=== PATIENT | male | born 1940 | race Caucasian/White ===

== ENCOUNTER 2019-05-22 04:57 | Inpatient (IN) ==
[2019-05-22] MEDS ORDERED: ASPIRIN 325 MG TABLET PO STA (05:17)
[2019-05-22] MEDS ORDERED: NITROGLYCERIN 2% OINT 1 INCH/GM PACK TOP STA (05:17)
[2019-05-22] MEDS ORDERED: ONDANSETRON 4 MG/2 ML VIAL IV STA (05:17)
[2019-05-22] MEDS ORDERED: methylPREDNISolone SOD SUC 125 MG/2 ML VIAL IV STA (05:27)
[2019-05-22] MEDS ORDERED: ALBUTEROL/IPRATROPIUM 3 ML NEB RESP TX STA (05:27)
[2019-05-22 05:49] LABS: Basophils % 0.3 % (0.0-0.8); Eosinophils # 0.1 10*3/uL (0.0-0.87); Eosinophils % 0.9 % (0.00-10.9); Hematocrit 28.7 VOL% (42.0-52.0); Hemoglobin 9.2 GM/DL (14.0-18.0); Immature Granulocytes % 1.4 %; Immature Granulocytes Absolute 0.11 #; Lymphocytes # 0.5 10*3/uL (1.4-4.0); Lymphocytes % 6.3 % (21.2-54.2); Mean Corpuscular HGB Conc 32.1 GM/DL (32-36); Mean Corpuscular Volume 87.5 FL (87-102); Mean Platelet Volume 10.7 FL (9.6-12.0); Monocytes % 13.4 % (1.7-12.7); Neutrophils % 77.7 % (38.7-73.9); Platelet Count 138 T/CUMM (130-400); Red Blood Count 3.28 MC/CUMM (3.8-5.5); Red Cell Distribution Width 16.6 % (9.3-17.3); White Blood Count 7.9 T/CUMM (4-12)
[2019-05-22 05:59] LABS: INR 1.1; PT Patient Result 12.1 SECS (9.6-12.2)
[2019-05-22 06:12] LABS: Albumin 2.2 G/DL (3.4-5.0); Bilirubin,Total 0.6 MG/DL (0.2-1.0); Calcium 7.8 MG/DL (8.5-10.1); Osmolality,Calculated 284.4 MOS/KG (273-304); Total Protein 4.7 G/DL (6.4-8.3)
[2019-05-22 06:26] LABS: ABG Base Excess -1.9 MMOL/L (-2.5-2.5); ABG HCO3 22.7 MMOL/L (20-26); ABG Oxygen Saturation 89.9 % (95-100); ABG PCO2 30.8 MM HG (35-48); ABG PO2 54.5 MM HG (80-95); ABG TCO2 19.8 MMOL/L (23-27); Allen Test Positive
[2019-05-22] MEDS ORDERED: APIXABAN 5 MG TABLET PO SCH ×2 (09:45→21:00)
[2019-05-22] MEDS: DRONEDARONE 400 MG TABLET PO SCH (17:45)
[2019-05-22] MEDS: FLUTICASONE/SALMETEROL 250-50 DISKUS 14 DOSE INH SCH (20:48)
[2019-05-22] MEDS: APIXABAN 5 MG TABLET PO SCH (20:48)
[2019-05-23 05:30] LABS: Basophils % 0.2 % (0.0-0.8); Hematocrit 28.8 VOL% (42.0-52.0); Hemoglobin 9.1 GM/DL (14.0-18.0); Immature Granulocytes % 1.6 %; Immature Granulocytes Absolute 0.16 #; Lymphocytes # 0.6 10*3/uL (1.4-4.0); Lymphocytes % 5.6 % (21.2-54.2); Mean Corpuscular HGB Conc 31.6 GM/DL (32-36); Mean Corpuscular Volume 87.8 FL (87-102); Mean Platelet Volume 11.3 FL (9.6-12.0); Monocytes % 8.8 % (1.7-12.7); Neutrophils % 83.8 % (38.7-73.9); Platelet Count 170 T/CUMM (130-400); Red Blood Count 3.28 MC/CUMM (3.8-5.5); Red Cell Distribution Width 16.6 % (9.3-17.3); White Blood Count 10.2 T/CUMM (4-12)
[2019-05-23 05:53] LABS: Albumin 2.3 G/DL (3.4-5.0); Bilirubin,Total 0.8 MG/DL (0.2-1.0); Calcium 8.2 MG/DL (8.5-10.1); Osmolality,Calculated 287.3 MOS/KG (273-304); Total Protein 5.3 G/DL (6.4-8.3)
[2019-05-23] MEDS ORDERED: MONTELUKAST 10 MG TABLET PO SCH (09:00)
[2019-05-23] MEDS ORDERED: LIDOCAINE 5% PATCH TRANSDERM SCH (09:00)
[2019-05-23] MEDS ORDERED: amLODIPine 10 MG TABLET PO SCH (09:00)
[2019-05-23] MEDS ORDERED: FINASTERIDE 5 MG TABLET PO SCH (09:00)
[2019-05-23] MEDS ORDERED: CETIRIZINE 10 MG TABLET PO SCH (09:00)
[2019-05-23] MEDS ORDERED: TAMSULOSIN 0.4 MG CAPSULE PO SCH (09:00)
[2019-05-23] MEDS ORDERED: LOSARTAN 50 MG TABLET PO SCH (09:00)
[2019-05-23] MEDS ORDERED: PANTOPRAZOLE 40 MG TABLET PO SCH (09:00)
[2019-05-23] MEDS ORDERED: ACETAMINOPHEN 325 MG TABLET PO PRN (09:03)
[2019-05-23] MEDS: DRONEDARONE 400 MG TABLET PO SCH (09:30)
[2019-05-23] MEDS ORDERED: CLINDAMYCIN INJ 600 MG in PREMIX 1 EACH IV SCH (09:30)
[2019-05-23] MEDS: APIXABAN 5 MG TABLET PO SCH (09:30)
[2019-05-23] MEDS: FLUTICASONE/SALMETEROL 250-50 DISKUS 14 DOSE INH SCH (09:38)
[2019-05-23 12:06] LABS: Apearance,Urine Slightly Hazy (Clear); Bilirubin,Urine Negative (Negative); Blood, Urine Negative (Negative); Glucose,Urine (UA) Negative (Negative); Hyaline Casts,Urine 1 /LPF (0-3); Ketones,Urine Negative (Negative); Mucus,Urine Occasional /LPF (Occasional); Nitrite,Urine Negative (Negative); Protein,Urine 30 MG/DL; Squamous Epithelial Cell,Urine Occasional /HPF (0-10); Urine Color Yellow (Yellow); Urine Specific Gravity 1.028 (1.001-1.035); Urine Urobilinogen < 2.0 EU/DL (0.2-1.0); WBC,Urine 1 /HPF (0-6)
[2019-05-23 12:36] VITALS: BP 132/66
== END 2019-05-23 13:04 | disposition home health service (06) | DRG 199 ==
LOC: EDUNIT# → EDBD → N.ED 04:57 → N.EDINP 09:18 → N.TELES 10:31
PROVIDERS: ADMIT Internal Medicine; ATTEND Internal Medicine

== ENCOUNTER 2019-06-07 21:57 | Inpatient (IN) ==
[2019-06-07] MEDS ORDERED: ONDANSETRON 4 MG/2 ML VIAL IV ONE (22:30)
[2019-06-07] MEDS ORDERED: ALBUTEROL/IPRATROPIUM 3 ML NEB RESP TX STA (22:30)
[2019-06-07] MEDS ORDERED: SODIUM CHLORIDE 0.9% 2,000 ML IV STA (22:30)
[2019-06-07] MEDS ORDERED: ACETAMINOPHEN 325 MG TABLET PO ONE (22:30)
[2019-06-07 22:44] LABS: Eosinophils % 3.9 % (0.00-10.9); Hematocrit 25.1 VOL% (42.0-52.0); Immature Granulocytes % 3.9 %; Immature Granulocytes Absolute 0.03 #; Lymphocytes # 0.2 10*3/uL (1.4-4.0); Lymphocytes % 20.8 % (21.2-54.2); Mean Corpuscular HGB Conc 31.9 GM/DL (32-36); Mean Corpuscular Volume 84.5 FL (87-102); Monocytes % 24.7 % (1.7-12.7); Neutrophils % 46.7 % (38.7-73.9); Red Blood Count 2.97 MC/CUMM (3.8-5.5); Red Cell Distribution Width 15.2 % (9.3-17.3)
[2019-06-07 22:47] LABS: INR 1.1; PT Patient Result 11.6 SECS (9.6-12.2)
[2019-06-07 22:48] LABS: Platelet Count 25 T/CUMM (130-400); White Blood Count 0.8 T/CUMM (4-12)
[2019-06-07 22:53] LABS: Albumin 2.5 G/DL (3.4-5.0); Bilirubin,Total 0.8 MG/DL (0.2-1.0); Total Protein 5.9 G/DL (6.4-8.3)
[2019-06-07 23:04] LABS: Troponin I 0.063 NG/ML (0.00-0.045)
[2019-06-07 23:12] LABS: Band Neutrophils 2 % (0-10); Eosinophils 6 % (0-10); Lymphocytes 18 % (20-55); Metamyelocytes 2 %; Myelocytes 2 %; Segmented Neutrophils 50 % (50-85)
[2019-06-07 23:13] LABS: Giant Platelets Few; Hypochromasia Slight; Ovalocytes 2+; Platelet Estimate Decreased; Reactive Lymphocytes Few
[2019-06-07 23:14] LABS: Schistocytes Few; Tear Drop Cells Few; Total Cells Counted 100
[2019-06-07] MEDS ORDERED: VANCOMYCIN INJ 1,000 MG in SODIUM CHLORIDE 0.9% 250 ML IV STA (23:23)
[2019-06-07] MEDS ORDERED: CEFEPIME 1,000 MG in SODIUM CHLORIDE 0.9% 100 ML IV STA (23:24)
[2019-06-07] MEDS ORDERED: IBUPROFEN 800 MG TABLET PO STA (23:43)
[2019-06-07] MEDS ORDERED: DILTIAZEM 50 MG/10 ML VIAL IV STA (23:43)
[2019-06-07] MEDS ORDERED: DILTIAZEM 25 MG/5 ML VIAL IV ONE (23:47)
[2019-06-07] MEDS ORDERED: metroNIDAZOLE INJ 500 MG in PREMIX 1 EACH IV STA (23:55)
[2019-06-08] MEDS ORDERED: ONDANSETRON 4 MG/2 ML VIAL IV PRN (00:18)
[2019-06-08] MEDS ORDERED: MORPHINE 4 MG/1 ML VIAL IV PRN (00:18)
[2019-06-08] MEDS ORDERED: guaiFENesin/DM ER 600-30 MG TABLET PO PRN (00:18)
[2019-06-08] MEDS ORDERED: ACETAMINOPHEN 325 MG TABLET PO PRN (00:18)
[2019-06-08] MEDS ORDERED: ZALEPLON 5 MG CAPSULE PO PRN (00:18)
[2019-06-08] MEDS ORDERED: DOCUSATE SODIUM 100 MG CAPSULE PO PRN (00:18)
[2019-06-08] MEDS ORDERED: SODIUM CHLORIDE 0.9% 1,000 ML IV STA (00:34)
[2019-06-08] MEDS: SODIUM CHLORIDE 0.9% 1,000 ML IV SCH ×2 (01:54→16:10)
[2019-06-08] MEDS ORDERED: DILTIAZEM 50 MG/10 ML VIAL IV ONE (03:12)
[2019-06-08] MEDS ORDERED: PHENYLEPHRINE DRIP 40 MG/250 ML PREMIX IV PRN (03:51)
[2019-06-08] MEDS: dilTIAZem Drip 125 MG/125 ML PREMIX IV SCH (04:15)
[2019-06-08 05:20] LABS: Eosinophils % 2.7 % (0.00-10.9); Hematocrit 20.4 VOL% (42.0-52.0); Immature Granulocytes % 1.4 %; Immature Granulocytes Absolute 0.01 #; Lymphocytes # 0.2 10*3/uL (1.4-4.0); Lymphocytes % 23.3 % (21.2-54.2); Mean Corpuscular HGB Conc 31.4 GM/DL (32-36); Monocytes % 19.2 % (1.7-12.7); Neutrophils % 53.4 % (38.7-73.9); Red Blood Count 2.43 MC/CUMM (3.8-5.5); Red Cell Distribution Width 15.3 % (9.3-17.3)
[2019-06-08 05:26] LABS: Hemoglobin 6.4 GM/DL (14.0-18.0); Platelet Count 21 T/CUMM (130-400); White Blood Count 0.7 T/CUMM (4-12)
[2019-06-08 05:34] LABS: Calcium 7.1 MG/DL (8.5-10.1); Osmolality,Calculated 285.1 MOS/KG (273-304); Total Protein 4.7 G/DL (6.4-8.3)
[2019-06-08 05:49] LABS: Band Neutrophils 3 % (0-10); Eosinophils 7 % (0-10); Hypochromasia 1+; Lymphocytes 30 % (20-55); Ovalocytes Slight; Platelet Estimate Decreased; Segmented Neutrophils 45 % (50-85); Total Cells Counted 100
[2019-06-08] MEDS: ALBUTEROL/IPRATROPIUM 3 ML NEB RESP TX PRN ×2 (06:30→20:43)
[2019-06-08] MEDS ORDERED: SODIUM CHLORIDE 0.9% 1,000 ML IV PRN (08:35)
[2019-06-08] MEDS ORDERED: APIXABAN 2.5 MG TABLET PO SCH (09:00)
[2019-06-08] MEDS ORDERED: LORATADINE 10 MG TABLET PO PRN (09:09)
[2019-06-08] MEDS: PANTOPRAZOLE 40 MG TABLET PO SCH (09:14)
[2019-06-08] MEDS: FLUTICASONE/SALMETEROL 250-50 DISKUS 14 DOSE INH SCH ×2 (09:14→20:40)
[2019-06-08] MEDS: DILTIAZEM 30 MG TABLET PO SCH ×3 (09:14→20:40)
[2019-06-08] MEDS: MONTELUKAST 10 MG TABLET PO SCH (09:14)
[2019-06-08] MEDS: FOLIC ACID 1 MG TABLET PO SCH (09:14)
[2019-06-08] MEDS: CEFEPIME 1,000 MG in SODIUM CHLORIDE 0.9% 100 ML IV SCH ×2 (09:15→16:09)
[2019-06-08] MEDS: FILGRASTIM-SNDZ 300 MCG/0.5 ML SYRINGE SUBCUT SCH (10:07)
[2019-06-08] MEDS: metroNIDAZOLE INJ 500 MG in PREMIX 1 EACH IV SCH ×2 (10:56→18:58)
[2019-06-08] MEDS: DRONEDARONE 400 MG TABLET PO SCH (16:09)
[2019-06-08] MEDS ORDERED: FUROSEMIDE 20 MG/2 ML VIAL IV ONE (21:15)
[2019-06-08] MEDS ORDERED: FUROSEMIDE 40 MG/4 ML VIAL ONE (21:17)
[2019-06-09] MEDS: VANCOMYCIN INJ 1,250 MG in SODIUM CHLORIDE 0.9% 250 ML IV SCH ×2 (00:11→22:59)
[2019-06-09] MEDS: CEFEPIME 1,000 MG in SODIUM CHLORIDE 0.9% 100 ML IV SCH ×3 (01:40→16:44)
[2019-06-09] MEDS: ALBUTEROL/IPRATROPIUM 3 ML NEB RESP TX SCH ×7 (03:36→23:40)
[2019-06-09] MEDS: metroNIDAZOLE INJ 500 MG in PREMIX 1 EACH IV SCH ×3 (03:53→18:11)
[2019-06-09 06:00] LABS: Eosinophils # 0.1 10*3/uL (0.0-0.87); Hematocrit 22.6 VOL% (42.0-52.0); Hemoglobin 7.6 GM/DL (14.0-18.0); Immature Granulocytes Absolute 0.04 #; Lymphocytes # 0.3 10*3/uL (1.4-4.0); Lymphocytes % 14.9 % (21.2-54.2); Mean Corpuscular HGB Conc 33.6 GM/DL (32-36); Mean Corpuscular Volume 83.7 FL (87-102); Mean Platelet Volume 12.5 FL (9.6-12.0); Monocytes % 14.9 % (1.7-12.7); NRBC # 0.02 10*3/uL; Neutrophils % 61.2 % (38.7-73.9); Red Cell Distribution Width 15.1 % (9.3-17.3)
[2019-06-09 06:02] LABS: Platelet Count 47 T/CUMM (130-400)
[2019-06-09] MEDS: SODIUM CHLORIDE 0.9% 1,000 ML IV SCH ×3 (06:06→22:27)
[2019-06-09] MEDS: dilTIAZem Drip 125 MG/125 ML PREMIX IV SCH (06:06)
[2019-06-09 06:22] LABS: Calcium 7.1 MG/DL (8.5-10.1); Osmolality,Calculated 281.3 MOS/KG (273-304)
[2019-06-09 06:46] LABS: Band Neutrophils 1 % (0-10); Eosinophils 6 % (0-10); Lymphocytes 12 % (20-55); Nucleated Red Blood Cells 1 (0-5); Platelet Estimate Decreased; Polychromasia Few; Segmented Neutrophils 68 % (50-85); Total Cells Counted 100
[2019-06-09] MEDS ORDERED: MAGNESIUM SULF RIDER 1 GM in PREMIX 1 EACH IV ONE (07:47)
[2019-06-09] MEDS: TAMSULOSIN 0.4 MG CAPSULE PO SCH (08:33)
[2019-06-09] MEDS: FINASTERIDE 5 MG TABLET PO SCH (08:33)
[2019-06-09] MEDS: DILTIAZEM 30 MG TABLET PO SCH ×3 (08:33→20:39)
[2019-06-09] MEDS: FOLIC ACID 1 MG TABLET PO SCH (08:34)
[2019-06-09] MEDS: DRONEDARONE 400 MG TABLET PO SCH ×2 (08:34→16:44)
[2019-06-09] MEDS: PANTOPRAZOLE 40 MG TABLET PO SCH (08:34)
[2019-06-09] MEDS: MONTELUKAST 10 MG TABLET PO SCH (08:34)
[2019-06-09] MEDS: FILGRASTIM-SNDZ 300 MCG/0.5 ML SYRINGE SUBCUT SCH (08:35)
[2019-06-09] MEDS: FLUTICASONE/SALMETEROL 250-50 DISKUS 14 DOSE INH SCH ×2 (08:42→20:39)
[2019-06-09] MEDS ORDERED: SODIUM CHLORIDE 0.9% 1,000 ML IV PRN (09:02)
[2019-06-09] MEDS: APIXABAN 2.5 MG TABLET PO SCH (10:04)
[2019-06-09] MEDS ORDERED: BENZONATATE 100 MG CAPSULE PO PRN (14:45)
[2019-06-09 15:54] LABS: Hemoglobin 9.2 GM/DL (14.0-18.0)
[2019-06-09] MEDS: LIDOCAINE 5% PATCH TRANSDERM SCH (16:45)
[2019-06-10] MEDS: CEFEPIME 1,000 MG in SODIUM CHLORIDE 0.9% 100 ML IV SCH ×3 (01:20→18:26)
[2019-06-10] MEDS: metroNIDAZOLE INJ 500 MG in PREMIX 1 EACH IV SCH ×3 (02:48→20:26)
[2019-06-10] MEDS: ALBUTEROL/IPRATROPIUM 3 ML NEB RESP TX SCH ×5 (03:38→21:10)
[2019-06-10 05:43] LABS: Basophils % 0.7 % (0.0-0.8); Eosinophils # 0.4 10*3/uL (0.0-0.87); Eosinophils % 9.2 % (0.00-10.9); Hematocrit 28.1 VOL% (42.0-52.0); Hemoglobin 9.5 GM/DL (14.0-18.0); Immature Granulocytes % 8.1 %; Immature Granulocytes Absolute 0.37 #; Lymphocytes # 0.6 10*3/uL (1.4-4.0); Lymphocytes % 12.4 % (21.2-54.2); Mean Corpuscular HGB Conc 33.8 GM/DL (32-36); Mean Corpuscular Volume 82.4 FL (87-102); Mean Platelet Volume 12.8 FL (9.6-12.0); NRBC # 0.12 10*3/uL; Neutrophils % 54.6 % (38.7-73.9); Red Blood Count 3.41 MC/CUMM (3.8-5.5); Red Cell Distribution Width 15.4 % (9.3-17.3); White Blood Count 4.6 T/CUMM (4-12)
[2019-06-10 05:44] LABS: Platelet Count 94 T/CUMM (130-400)
[2019-06-10 06:04] LABS: Calcium 7.6 MG/DL (8.5-10.1); Osmolality,Calculated 273.7 MOS/KG (273-304)
[2019-06-10 06:12] LABS: Band Neutrophils 1 % (0-10); Burr Cells Slight; Eosinophils 10 % (0-10); Hypochromasia Slight; Lymphocytes 13 % (20-55); Nucleated Red Blood Cells 2 (0-5); Ovalocytes Slight; Platelet Estimate Decreased; Segmented Neutrophils 67 % (50-85); Total Cells Counted 100
[2019-06-10] MEDS: FLUTICASONE/SALMETEROL 250-50 DISKUS 14 DOSE INH SCH ×2 (10:20→20:28)
[2019-06-10] MEDS: LIDOCAINE 5% PATCH TRANSDERM SCH (10:22)
[2019-06-10] MEDS: FILGRASTIM-SNDZ 300 MCG/0.5 ML SYRINGE SUBCUT SCH (10:25)
[2019-06-10] MEDS: DILTIAZEM 30 MG TABLET PO SCH ×3 (10:27→20:28)
[2019-06-10] MEDS: APIXABAN 2.5 MG TABLET PO SCH (10:27)
[2019-06-10] MEDS: TAMSULOSIN 0.4 MG CAPSULE PO SCH (10:27)
[2019-06-10] MEDS: DRONEDARONE 400 MG TABLET PO SCH ×2 (10:27→17:23)
[2019-06-10] MEDS: FOLIC ACID 1 MG TABLET PO SCH (10:27)
[2019-06-10] MEDS: PANTOPRAZOLE 40 MG TABLET PO SCH (10:27)
[2019-06-10] MEDS: MONTELUKAST 10 MG TABLET PO SCH (10:27)
[2019-06-10] MEDS: FINASTERIDE 5 MG TABLET PO SCH (10:27)
[2019-06-10] MEDS: APIXABAN 5 MG TABLET PO SCH (20:27)
[2019-06-11] MEDS: ALBUTEROL/IPRATROPIUM 3 ML NEB RESP TX SCH ×4 (00:18→11:19)
[2019-06-11] MEDS: CEFEPIME 1,000 MG in SODIUM CHLORIDE 0.9% 100 ML IV SCH (03:06)
[2019-06-11] MEDS: metroNIDAZOLE INJ 500 MG in PREMIX 1 EACH IV SCH (03:39)
[2019-06-11 05:22] LABS: Basophils # 0.1 10*3/uL (0.0-0.2); Basophils % 0.8 % (0.0-0.8); Eosinophils # 0.5 10*3/uL (0.0-0.87); Eosinophils % 5.3 % (0.00-10.9); Hematocrit 27.3 VOL% (42.0-52.0); Hemoglobin 9.2 GM/DL (14.0-18.0); Immature Granulocytes % 12.9 %; Lymphocytes # 1.1 10*3/uL (1.4-4.0); Lymphocytes % 11.9 % (21.2-54.2); Mean Corpuscular HGB Conc 33.7 GM/DL (32-36); Mean Corpuscular Volume 83.7 FL (87-102); Monocytes % 11.5 % (1.7-12.7); NRBC # 0.11 10*3/uL; Neutrophils % 57.6 % (38.7-73.9); Platelet Count 142 T/CUMM (130-400); Red Blood Count 3.26 MC/CUMM (3.8-5.5); Red Cell Distribution Width 15.7 % (9.3-17.3); White Blood Count 9.3 T/CUMM (4-12)
[2019-06-11 05:43] LABS: Calcium 7.6 MG/DL (8.5-10.1)
[2019-06-11 06:07] LABS: Atypical Lymphocytes Few; Band Neutrophils 3 % (0-10); Eosinophils 8 % (0-10); Lymphocytes 20 % (20-55); Metamyelocytes 1 %; Nucleated Red Blood Cells 1 (0-5); Reactive Lymphocytes Few; Segmented Neutrophils 54 % (50-85); Total Cells Counted 100
[2019-06-11 06:09] LABS: Acanthocytes 3+; Burr Cells 2+; Giant Platelets Few; Platelet Estimate Normal; Polychromasia 1+
[2019-06-11] MEDS ORDERED: MAGNESIUM SULF RIDER 4 GM in PREMIX 1 EACH IV PRN (07:41)
[2019-06-11] MEDS ORDERED: MAGNESIUM SULF RIDER 2 GM in PREMIX 1 EACH IV PRN (07:41)
[2019-06-11] MEDS: DRONEDARONE 400 MG TABLET PO SCH (08:25)
[2019-06-11] MEDS: MONTELUKAST 10 MG TABLET PO SCH (08:25)
[2019-06-11] MEDS: DILTIAZEM 30 MG TABLET PO SCH (08:25)
[2019-06-11] MEDS: FILGRASTIM-SNDZ 300 MCG/0.5 ML SYRINGE SUBCUT SCH (08:25)
[2019-06-11] MEDS: FOLIC ACID 1 MG TABLET PO SCH (08:25)
[2019-06-11] MEDS: FINASTERIDE 5 MG TABLET PO SCH (08:25)
[2019-06-11] MEDS: APIXABAN 5 MG TABLET PO SCH (08:26)
[2019-06-11] MEDS: PANTOPRAZOLE 40 MG TABLET PO SCH (08:26)
[2019-06-11] MEDS: TAMSULOSIN 0.4 MG CAPSULE PO SCH (08:26)
[2019-06-11] MEDS: FLUTICASONE/SALMETEROL 250-50 DISKUS 14 DOSE INH SCH (08:27)
[2019-06-11] MEDS: LIDOCAINE 5% PATCH TRANSDERM SCH (08:27)
[2019-06-11] MEDS ORDERED: APIXABAN 2.5 MG TABLET PO SCH (11:00)
[2019-06-11 12:25] VITALS: BP 135/67
== END 2019-06-11 14:30 | disposition home or self-care (01) | DRG 871 ==
LOC: EDBD → EDUNIT# → N.ED 21:57 → SUATTDRO 23:58 → N.EDINP 23:59 → SUATTDRO 23:59 → N.ICU 06-08 00:31 → N.4E 06-09 14:44
PROVIDERS: ADMIT Internal Medicine Geriatric Medicine; ATTEND Hospitalist

== ENCOUNTER 2019-08-02 09:51 | Inpatient (IN) ==
[2019-08-02] MEDS ORDERED: ONDANSETRON 4 MG/2 ML VIAL IV STA (10:06)
[2019-08-02] MEDS ORDERED: PHENAZOPYRIDINE 95 MG TABLET PO STA (10:09)
[2019-08-02] MEDS ORDERED: LEVOFLOXACIN INJ 750 MG in PREMIX 1 EACH IV STA (10:11)
[2019-08-02 10:38] LABS: Basophils % 0.1 % (0.0-0.8); Eosinophils # 0.1 10*3/uL (0.0-0.87); Eosinophils % 0.6 % (0.00-10.9); Hematocrit 38.9 VOL% (42.0-52.0); Hemoglobin 13.1 GM/DL (14.0-18.0); Immature Granulocytes % 0.4 %; Immature Granulocytes Absolute 0.05 #; Lymphocytes # 0.7 10*3/uL (1.4-4.0); Lymphocytes % 5.1 % (21.2-54.2); Mean Corpuscular HGB Conc 33.7 GM/DL (32-36); Mean Corpuscular Volume 90.3 FL (87-102); Mean Platelet Volume 9.7 FL (9.6-12.0); Monocytes % 13.6 % (1.7-12.7); Neutrophils % 80.2 % (38.7-73.9); Platelet Count 299 T/CUMM (130-400); Red Blood Count 4.31 MC/CUMM (3.8-5.5); Red Cell Distribution Width 15.9 % (9.3-17.3); White Blood Count 12.9 T/CUMM (4-12)
[2019-08-02 10:49] LABS: Apearance,Urine CLEAR (Clear); Bacteria,Urine Occasional /HPF (Few); Bilirubin,Urine Negative (Negative); Blood, Urine Negative (Negative); Glucose,Urine (UA) Negative (Negative); Ketones,Urine 5 mg/dL (Negative); Nitrite,Urine Positive (Negative); Protein,Urine Negative; RBC,Urine 1 /HPF (0-4); Urine Color Amber (Yellow); Urine Specific Gravity 1.008 (1.001-1.035); WBC,Urine <1 /HPF (0-6)
[2019-08-02] MEDS ORDERED: METOPROLOL TARTRATE 5 MG/5 ML VIAL IV STA (10:53)
[2019-08-02] MEDS ORDERED: METOPROLOL TARTRATE 5 MG/5 ML VIAL IV ONE (10:54)
[2019-08-02 11:01] LABS: Alanine Aminotransferase 13 U/L (16-61); Albumin 3.5 G/DL (3.4-5.0); Alkaline Phosphatase 78 U/L (45-117); Aspartate Amino Transferase 17 U/L (0-37); Blood Urea Nitrogen 19 MG/DL (7-18); Calcium 9.5 MG/DL (8.5-10.1); Estimated Glom Filtration Rate 44 ML/MIN; Glucose 74 MG/DL (74-106); Osmolality,Calculated 260.8 MOS/KG (273-304); Total Protein 6.6 G/DL (6.4-8.3); Troponin I < 0.015 NG/ML (0.00-0.045)
[2019-08-02] MEDS ORDERED: SODIUM CHLORIDE 0.9% 500 ML IV STA (11:04)
[2019-08-02 11:06] LABS: Prostate Specific Antigen Diag 4.5 NG/ML (0-4)
[2019-08-02] MEDS: TAMSULOSIN 0.4 MG CAPSULE PO SCH (11:44)
[2019-08-02] MEDS ORDERED: ACETAMINOPHEN 325 MG TABLET PO PRN (11:48)
[2019-08-02] MEDS ORDERED: DOCUSATE SODIUM 100 MG CAPSULE PO PRN (11:48)
[2019-08-02] MEDS ORDERED: SIMETHICONE CHEW 125 MG TABLET PO PRN (11:48)
[2019-08-02] MEDS ORDERED: LACTULOSE 20 GM/30 ML UDCUP PO PRN (11:48)
[2019-08-02] MEDS ORDERED: hydrALAZINE 20 MG/1 ML VIAL IV PRN (11:48)
[2019-08-02] MEDS ORDERED: ONDANSETRON 4 MG/2 ML VIAL IV PRN (11:48)
[2019-08-02] MEDS ORDERED: ALBUTEROL 2.5 MG/3 ML NEB RESP TX PRN (12:08)
[2019-08-02] MEDS ORDERED: METOPROLOL TARTRATE 5 MG/5 ML VIAL IV PRN (12:31)
[2019-08-02] MEDS ORDERED: DRONEDARONE 400 MG TABLET PO ONE (14:13)
[2019-08-02] MEDS: LOSARTAN 50 MG TABLET PO SCH (14:24)
[2019-08-02] MEDS: SODIUM CHLORIDE 0.9% 1,000 ML IV SCH (14:24)
[2019-08-02] MEDS: amLODIPine 10 MG TABLET PO SCH (14:24)
[2019-08-02] MEDS: PANTOPRAZOLE 40 MG TABLET PO SCH (16:51)
[2019-08-02] MEDS: DRONEDARONE 400 MG TABLET PO SCH (16:52)
[2019-08-02] MEDS ORDERED: DRONEDARONE 400 MG TABLET PO SCH (17:00)
[2019-08-02] MEDS: APIXABAN 5 MG TABLET PO SCH (20:30)
[2019-08-03 05:52] LABS: Basophils % 0.2 % (0.0-0.8); Calcium 8.6 MG/DL (8.5-10.1); Eosinophils # 0.3 10*3/uL (0.0-0.87); Eosinophils % 4.1 % (0.00-10.9); Hematocrit 31.9 VOL% (42.0-52.0); Immature Granulocytes % 0.5 %; Immature Granulocytes Absolute 0.03 #; Lymphocytes # 0.7 10*3/uL (1.4-4.0); Lymphocytes % 10.7 % (21.2-54.2); Mean Corpuscular HGB Conc 32.3 GM/DL (32-36); Mean Corpuscular Volume 92.5 FL (87-102); Mean Platelet Volume 9.7 FL (9.6-12.0); Monocytes % 15.9 % (1.7-12.7); Neutrophils % 68.6 % (38.7-73.9); Osmolality,Calculated 274.7 MOS/KG (273-304); Red Blood Count 3.45 MC/CUMM (3.8-5.5); Red Cell Distribution Width 15.9 % (9.3-17.3)
[2019-08-03 06:05] LABS: Hemoglobin 10.3 GM/DL (14.0-18.0); Platelet Count 239 T/CUMM (130-400); White Blood Count 6.5 T/CUMM (4-12)
[2019-08-03 07:15] LABS: Band Neutrophils 1 % (0-10); Total Cells Counted 100
[2019-08-03 07:19] LABS: Eosinophils 3 % (0-10); Lymphocytes 11 % (20-55); Platelet Estimate Normal; Segmented Neutrophils 70 % (50-85)
[2019-08-03] MEDS: SODIUM CHLORIDE 0.9% 1,000 ML IV SCH (07:44)
[2019-08-03] MEDS: amLODIPine 10 MG TABLET PO SCH (08:52)
[2019-08-03] MEDS: LOSARTAN 50 MG TABLET PO SCH (08:52)
[2019-08-03] MEDS: PANTOPRAZOLE 40 MG TABLET PO SCH (08:53)
[2019-08-03] MEDS: DRONEDARONE 400 MG TABLET PO SCH ×2 (08:53→18:46)
[2019-08-03] MEDS: APIXABAN 5 MG TABLET PO SCH ×2 (08:53→20:24)
[2019-08-03] MEDS: TAMSULOSIN 0.4 MG CAPSULE PO SCH (08:53)
[2019-08-03] MEDS ORDERED: DUTASTERIDE 0.5 MG CAPSULE PO SCH (09:00)
[2019-08-03] MEDS ORDERED: MONTELUKAST 10 MG TABLET PO SCH (09:00)
[2019-08-03] MEDS ORDERED: FLUTICASONE 50 MCG NASAL SPRAY 16 GM BOTTLE BOTH NARES SCH (09:00)
[2019-08-04 05:08] LABS: Basophils % 0.2 % (0.0-0.8); Eosinophils # 0.3 10*3/uL (0.0-0.87); Eosinophils % 6.5 % (0.00-10.9); Hematocrit 31.4 VOL% (42.0-52.0); Hemoglobin 10.1 GM/DL (14.0-18.0); Immature Granulocytes % 0.4 %; Immature Granulocytes Absolute 0.02 #; Lymphocytes # 0.7 10*3/uL (1.4-4.0); Lymphocytes % 13.8 % (21.2-54.2); Mean Corpuscular HGB Conc 32.2 GM/DL (32-36); Mean Corpuscular Volume 93.2 FL (87-102); Mean Platelet Volume 9.7 FL (9.6-12.0); Monocytes % 14.3 % (1.7-12.7); Neutrophils % 64.8 % (38.7-73.9); Platelet Count 241 T/CUMM (130-400); Red Blood Count 3.37 MC/CUMM (3.8-5.5); Red Cell Distribution Width 15.9 % (9.3-17.3); White Blood Count 5.2 T/CUMM (4-12)
[2019-08-04 05:18] LABS: Calcium 8.2 MG/DL (8.5-10.1); Osmolality,Calculated 279.4 MOS/KG (273-304)
[2019-08-04] MEDS: SODIUM CHLORIDE 0.9% 1,000 ML IV SCH (06:17)
[2019-08-04] MEDS ORDERED: LEVOFLOXACIN INJ 500 MG in PREMIX 1 EACH IV SCH (09:00)
[2019-08-04 13:08] VITALS: BP 133/80
== END 2019-08-04 15:25 | disposition home or self-care (01) | DRG 683 ==
LOC: N.ED 09:51 → N.EDINP 11:50 → SUATTDRO 11:50 → N.EDINP 12:52 → N.4E 12:58
PROVIDERS: ADMIT Internal Medicine; ATTEND Family Medicine